=== PATIENT | male | born 1950 ===

== ENCOUNTER 2024-03-28 10:48 | Day surgery (SDC) | payer OTHER ==
--- NOTE | 2024-03-27 11:40 | RAD REPORT ---
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 FINDINGS: LUNGS/PLEURA: The lungs are clear. No pleural effusions or pneumothorax. No pulmonary edema. MEDIASTINUM: The mediastinal silhouette is within normal limits CARDIAC: The cardiac silhouette is within normal limits. UPPER ABDOMEN: No significant abnormality. BONES: No acute abnormality. LINES/TUBES/OTHER: N/A IMPRESSION: No evidence of acute cardiopulmonary disease.
[2024-03-27 11:51] LABS: Absolute Basophils 0.1 K/uL (0-0.5); Absolute Eosinophils 0.1 K/uL (0-0.5); Absolute Lymphocytes (CBC) 2.3 K/uL (0.7-4.9); Absolute Monocytes 0.7 K/uL (0.1-1.3); Basophils % 0.7 % (0-1.3); Eosinophils % 0.9 % (0-4.4); Hematocrit 45.4 % (39.6-49.0); Hemoglobin 15.8 g/dL (13.6-17.9); Lymphocytes % 31.8 % (15.3-44.8); MCH 30.8 pg (27.0-35.0); MCHC 34.9 g/dL (32.0-36.0); MCV 88.1 fL (80-100); MPV 7.8 fL (7.6-11.3); Monocytes % 10.4 % (3.3-12.3); Neutrophils % 56.2 % (41.7-73.7); Nucleated Red Blood Cells % 0.1 % (0-0); Platelets 268 thou/uL (152-406); RBC Red Blood Cell Count 5.15 M/uL (4.33-5.43); Red Cell Distribution Width 13.4 % (12.1-15.2)
[2024-03-27 11:53] LABS: PT Prothrombin Time 11.9 SECONDS (9.4-12.5); PTT, Activated Partial Thromb 33.3 SECONDS (24.3-36.9); Protime INR 1.13
[2024-03-27 12:11] LABS: Anion Gap 7.7 mEq/L (5.0-15.0); Potassium 3.7 mEq/L (3.5-5.1)
[2024-03-28] MEDS ORDERED: HEPA 1000U/500MLS 2,000 UNIT/1,000 ML BAG IV ONE (12:32)
[2024-03-28] MEDS ORDERED: VERAPAMIL HCL 10 MG/4 ML VIAL IV ONE (12:32)
[2024-03-28] MEDS ORDERED: LIDOCAINE 1% 20 ML MDV ONE (12:32)
[2024-03-28] MEDS ORDERED: HEPARIN 10,000 UNIT/10 ML VIAL IV ONE (12:32)
[2024-03-28] MEDS ORDERED: TICAGRELOR 90 MG TABLET PO ONE (12:33)
[2024-03-28] MEDS ORDERED: HEPARIN 5000 UNIT/ML 1 ML VIAL ONE (12:33)
[2024-03-28] MEDS ORDERED: ATROPINE SULF 1 MG/10 ML SYR IV ONE (12:33)
[2024-03-28] MEDS ORDERED: ASPIRIN 325 MG TAB ONE (12:33)
[2024-03-28] MEDS ORDERED: CLOPIDOGREL 75 MG TABLET ONE (12:33)
[2024-03-28] MEDS ORDERED: MIDAZOLAM HCL 2 MG/2 ML INJ ONE (12:33)
[2024-03-28] MEDS ORDERED: FENTANYL CITR 100 MCG/2 ML ONE (12:34)
[2024-03-28] MEDS: NA CHLORIDE 0.9% 500 ML ONE (13:21)
[2024-03-28 14:11] VITALS: TEMP 97.8
--- NOTE | 2024-03-28 14:15 | OP ---
Date of Procedure: 03/28/2024 Surgeon: CHRISTIANA CHACON Procedure Performed: Peripheral angiogram. Indication: Severe claudication and possible peripheral vascular disease. Access: Right radial artery 6-Faroese, closed with TR band. Complications: None. Bleeding: Less than 50 mL. Anesthesia: Total sedation time is 45 minutes. Description Of Procedure: After risks, and benefits, and alternatives were explained, the patient ag ijeoma to procedure and signed informed consent. The patient was brought into cardiac catheterization laboratory, prepped and draped in usual sterile fashion. Then I accessed right radial artery using p Nekst micropuncture kit, placed 6-Faroese Slender sheath and took a 4-Faroese long pigtail catheter, placed in distal aorta, performed distal aortogram and runoff and then placed it in the right common iliac and distal runoff as well. Removed the catheter and the sheath, placed TR band with good hemo stasis. Findings: 1. Distal aorta was widely open. 2. Right lower extremity: The right common iliac, external iliac, internal iliac, common femoral, pr ofunda, and the SFA were both normal with some luminal irregularities in the SFA and the popliteal ar kathy is patent. Anterior tibial and tibial trunk appeared patent and peroneal and posterior tibial a re open, but through due to the very slow flow. 3. Left lower extremity: Left common iliac, external, internal iliac, common femoral, and profunda w idely patent, luminal irregularities in the SFA. Patent popliteal artery and anterior tibial as well as tibial trunk and posterior tibial and peroneal as well, but with a very slow flow. Conclusion: No significant peripheral vascular disease, but very slow flow likely suggestive of micr ovascular peripheral vascular disease. Recommendation: Vasodilators and structured exercise. SR/MODL Voice ID: [id number] Report ID: [id number]
[2024-03-28 15:19] VITALS: O2SAT 96
[2024-03-28 17:27] VITALS: BP 119/71
--- NOTE | 2024-04-02 12:40 | EKG ---
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
== END 2024-03-28 16:05 | disposition home or self-care (01) ==
LOC: CCL 10:48
PROVIDERS: ATTEND Internal Medicine
DX: I73.9 Peripheral vascular disease, unspecified (principal); I10 Essential (primary) hypertension; E78.5 Hyperlipidemia, unspecified
CPT/HCPCS: 36200; 36245; 36246; 36415; 71046; 75625; 75716; 76937; 80048; 85025; 85610; 85730; 93005; 99152; 99153; C1893; J0461; J1644; J2003; J2250; J3010; J7040